=== PATIENT | female | born 1945 | race Caucasian/White ===

== ENCOUNTER 2019-08-02 13:42 | Outpatient (CLI) | payer MEDICARE, OTHER, SELFPAY ==
--- NOTE | 2019-08-02 13:53 | MM_ITS ---
WS: [id number] BILATERAL SCREENING DIGITAL MAMMOGRAM WITH CAD HISTORY: SCREEN COMPARISON: 05/05/2018 and 04/28/2017 Bilateral CC and MLO views submitted. Computer aided detection analyzed. Breast composition: There are scattered areas of fibroglandular density. No suspicious masses, microc alcifications or architectural distortion. MM/[place] [id number] IMPRESSION: BI-RADS: 1-Negative FOLLOW UP: 1 Year Follow-up
== END 2019-08-02 13:43 | disposition home or self-care (01) ==
LOC: RADSHAW 13:49
PROVIDERS: PCP Pediatrics; Visit Provider Pediatrics
DX: Z12.31 Encounter for screening mammogram for malignant neoplasm of breast (principal)
CPT/HCPCS: 77067

== ENCOUNTER 2020-12-05 09:10 | Outpatient (CLI) | payer MEDICARE, OTHER, SELFPAY ==
--- NOTE | 2020-12-05 09:15 | MM_ITS ---
WS: [id number] BILATERAL DIGITAL SCREENING MAMMOGRAPHY WITH CAD CLINICAL INFORMATION: SCREENING HISTORY: Screening mammogram. No current complaints. COMPARISON: August 02, 2019 TECHNIQUE: Bilateral CC and MLO views. FINDINGS: Scattered fibroglandular densities bilaterally. No suspicious focal mass, asymmetry, calcifications, or architectural distortion. No evidence of malignancy. Vascular calcification. MM/[place] [id number] IMPRESSION: BI-RADS: 2-Benign FOLLOW UP: 1 Year Follow-up Recommend return to annual screening mammography.
== END 2020-12-05 09:11 | disposition home or self-care (01) ==
LOC: RADSHAW 09:14
PROVIDERS: PCP Pediatrics; Visit Provider Pediatrics
DX: Z12.31 Encounter for screening mammogram for malignant neoplasm of breast (principal)
CPT/HCPCS: 77067

== ENCOUNTER 2022-01-04 08:45 | Outpatient (CLI) | payer MEDICARE, OTHER, SELFPAY ==
--- NOTE | 2022-01-04 08:53 | MM_ITS ---
WS: [id number] BILATERAL SCREENING DIGITAL TOMOSYNTHESIS MAMMOGRAM WITH CAD HISTORY: SCREENING COMPARISON: 12/05/2020 and 08/02/2019 Bilateral CC and MLO views with tomosynthesis and synthetic mammography submitted. Computer aided det ection analyzed. Breast composition: There are scattered areas of fibroglandular density. No suspicious masses, microc alcifications or architectural distortion. MM/[place] [id number] IMPRESSION: BI-RADS: 1-Negative FOLLOW UP: 1 Year Follow-up
== END 2022-01-04 08:46 | disposition home or self-care (01) ==
LOC: RAD 08:46
PROVIDERS: PCP Pediatrics; Visit Provider Pediatrics
DX: Z12.31 Encounter for screening mammogram for malignant neoplasm of breast (principal)
CPT/HCPCS: 77063; 77067

== ENCOUNTER 2023-01-06 08:42 | Outpatient (CLI) | payer MEDICARE, OTHER, SELFPAY ==
--- NOTE | 2023-01-06 08:47 | MM_ITS ---
WS: [id number] BILATERAL SCREENING DIGITAL TOMOSYNTHESIS MAMMOGRAM WITH CAD HISTORY: SCREENING COMPARISON: 01/04/2022 and 12/05/2020 Bilateral CC and MLO views with tomosynthesis and synthetic mammography submitted. Computer aided det ection analyzed. Breast composition: There are scattered areas of fibroglandular density. No suspicious masses, microc alcifications or architectural distortion. IMPRESSION: MM/[place] [id number] BI-RADS: 1-Negative FOLLOW UP: 1 Year Follow-up
== END 2023-01-06 08:43 | disposition home or self-care (01) ==
LOC: RAD 08:43
PROVIDERS: PCP Pediatrics; Visit Provider Pediatrics
DX: Z12.31 Encounter for screening mammogram for malignant neoplasm of breast (principal)
CPT/HCPCS: 77063; 77067

== ENCOUNTER 2023-08-04 09:09 | Outpatient (CLI) | payer MEDICARE, OTHER, SELFPAY ==
--- NOTE | 2023-08-04 09:21 | MM_ITS ---
WS: [id number] BILATERAL 3D TOMOSYNTHESIS DIGITAL DIAGNOSTIC MAMMOGRAPHY WITH CAD CLINICAL INFORMATION: PAIN OF BOTH BREASTS/CHANGE IN SKIN HISTORY: Skin changes around the nipples with itching. Sore nipples. COMPARISON: 2022 TECHNIQUE: Bilateral CC, MLO, and ML views. FINDINGS: Scattered fibroglandular densities bilaterally. No suspicious abnormalities in the subareolar regions bilaterally. Ultrasound is pending. No suspicious focal mass, asymmetry, calcifications, or architectural distortion. Vascular calcificat ion. ULTRASOUND BREAST BILATERAL TECHNIQUE: Ultrasound bilateral breast focused area of concern. CLINICAL INFORMATION: PAIN OF BOTH BREASTS/CHANGE IN SKIN COMPARISON: None. FINDINGS: RIGHT BREAST: Ultrasound RIGHT subareolar region. Normal subareolar parenchymal tissue. No cystic or solid lesions. LEFT BREAST: Ultrasound LEFT subareolar region.Normal subareolar parenchymal tissue. No cystic or sangeetha id lesions. MM/[place] [id number] IMPRESSION: BI-RADS: 2-Benign FOLLOW UP: 1 Year Follow-up Recommend return to annual screening mammography.
== END 2023-08-04 09:10 | disposition home or self-care (01) ==
LOC: RAD 09:09
PROVIDERS: PCP Pediatrics; Visit Provider Pediatrics
DX: N64.4 Mastodynia (principal)
CPT/HCPCS: 76642; 77062; G0279

== ENCOUNTER 2024-12-26 08:59 | Outpatient (CLI) | payer MEDICARE, OTHER, SELFPAY ==
--- NOTE | 2024-12-26 09:06 | MM_ITS ---
WS: [id number] SCREENING DIGITAL BREAST TOMOSYNTHESIS MAMMOGRAM WITH CAD HISTORY: SCREENING COMPARISON: 08/04/2023, 01/06/2023, 01/04/2022 Bilateral CC and MLO with tomosynthesis and synthetic mammography submitted. Computer aided detection analyzed. Breast composition: There are scattered areas of fibroglandular density. There are 2 new masses in the upper outer quadrant LEFT breast at a middle depth. Diameter of each mass is approximately 3 mm. These are very closely associated with each other near 2:00. The remaining breasts are negative. No suspicious masses or calcifications. Arterial calcifications. MM/MM [facility] tomosynthesis [id number] IMPRESSION: BI-RADS: 0 - Incomplete: Need additional imaging evaluation. FOLLOW UP: Need Additional Imaging Recommendation: LEFT breast ultrasound, limited. LEFT upper outer quadrant with attention to 10:00.
== END 2024-12-26 09:00 | disposition home or self-care (01) ==
LOC: RAD 09:01
PROVIDERS: PCP Pediatrics; Visit Provider Pediatrics
DX: Z12.31 Encounter for screening mammogram for malignant neoplasm of breast (principal); R92.323 Mammographic fibroglandular density, bilateral breasts; N63.21 Unspecified lump in the left breast, upper outer quadrant
CPT/HCPCS: 77063; 77067